=== PATIENT | male | born 1980 | race Caucasian/White ===

== ENCOUNTER 2017-03-10 13:52 | Emergency (ER) | payer OTHER ==
[~2017-03-10] VITALS: Ht 154.9 cm; Wt 70.1 kg
[~2017-03-10 13:52] MED LIST: CALCIUM 500 +1 EACH PO; CENTRUM COMPLE1 EACH PO; CLARITIN10 MG PO; FLONASE16 G1 BOTH NARES; LORTAB 5-325 M1 EACH PO; MOTRIN600 MG PO; NOHOMEMEDS; PEPCID20 MG PO; PROMETHAZINE HC25 M1 PO; SINGULAIR10 MG PO; VIBRAMYCIN100 MG PO
[2017-03-10 16:41] VITALS: BP 118/74
== END 2017-03-10 16:50 | disposition home or self-care (01) ==
LOC: EME 13:52
DX: M54.5 Low back pain (principal); F79 Unspecified intellectual disabilities
CPT/HCPCS: 72100; 99281; 99283